=== PATIENT | female | born 1950 | race Caucasian/White ===

== ENCOUNTER 2016-07-07 13:24 | Emergency (ER) | payer MEDICARE, OTHER ==
[~2016-07-07] VITALS: Ht 167.6 cm; Wt 102.1 kg
[2016-07-07] MEDS ORDERED: NOVOLOG100 UNIT/2 SUBCUT (16:16)
[2016-07-07] MEDS ORDERED: LIPITOR40 MG PO (16:16)
[2016-07-07] MEDS ORDERED: MICROZIDE12.5 MG PO (16:18)
[2016-07-07] MEDS ORDERED: MAVIK2 MG PO (16:18)
[2016-07-07] MEDS ORDERED: ATIVAN0.5 M1 PO (16:19)
== END 2016-07-07 15:17 | disposition short-term general hospital (02) ==
LOC: ER 13:24 → EDBD 13:25 → ER 13:25
PROC: 2W3DX1Z Immobilization of Left Lower Arm using Splint (ICD-10-PCS; principal; 2016-07-07)
DX: S52.502A Unspecified fracture of the lower end of left radius, initial encounter for closed fracture (principal); E11.9 Type 2 diabetes mellitus without complications; Z79.4 Long term (current) use of insulin; Z79.899 Other long term (current) drug therapy; W01.0XXA Fall on same level from slipping, tripping and stumbling without subsequent striking against object, initial encounter